=== PATIENT | female | born 1960 | race African-American/Black ===

== ENCOUNTER 2025-06-14 09:40 | Inpatient (IN) | payer MEDICARE, MEDICAID ==
[~2025-06-14] VITALS: Ht 160 cm; Wt 89.4 kg
[~2025-06-14 09:40] MED LIST: AMLO5TAB6; VERA240T94
[2025-06-14 09:53] VITALS: O2SAT 99
[2025-06-14 10:24] LABS: BASOPHILS % 0.4 % (0.0-2.0); EOSINOPHILS % 0.1 % (0.0-5.0); HEMATOCRIT. 24.2 % (36.0-48.0); HEMOGLOBIN. 8.2 g/dL (12.0-16.0); LYMPHOCYTES % 15.1 % (20.0-50.0); MEAN PLATELET VOLUME 10.2 fl (7.4-10.4); MONOCYTES % 6.1 % (2.0-8.0); NEUTROPHILS % 78.3 % (40.0-76.0); PLATELET 143 x1000/uL (130-400); RED BLOOD CELL COUNT 3.12 mill/uL (4.2-5.4); RED CELL DISTRIBUTION WIDTH 14.2 % (11.6-14.6)
[2025-06-14 10:59] LABS: CREATININE 0.9 mg/dL (0.6-1.0); TROPONIN I HIGH SENSITIVITY 12 ng/L (3.0-34); UREA NITROGEN BLOOD 18 mg/dL (9-23)
[2025-06-14 11:00] LABS: ASPARTATE AMINOTRANSFERASE 24 IU/L (<34)
[2025-06-14 11:01] LABS: BILIRUBIN DIRECT 0.2 mg/dL (<=3.0); BILIRUBIN TOTAL 0.8 mg/dL (0.1-1.0); PROTEIN TOTAL 6.5 g/dL (6.0-8.3)
[2025-06-14 11:59] LABS: INR 1.1
[2025-06-14 16:00] VITALS: BP 128/69; PULSE 88; RESP 16; TEMP 36.4; O2SAT 100
[2025-06-14 17:24] VITALS: BP 123/95; PULSE 84; RESP 16; TEMP 36.7; O2SAT 98
[2025-06-14 17:25] VITALS: BP 123/55; PULSE 80; RESP 16; TEMP 36.696
[2025-06-14] MEDS ORDERED: CLONIDINE 0.1MG TABLET PO PRN (17:45)
[2025-06-14] MEDS: DIATR MEGLU/DIATRIZOATE SOLN 30ML PO SCH (17:45)
[2025-06-14] MEDS ORDERED: MAGNESIUM/ALUMINUM HYDROXIDE/SIMETHICONE 30ML UDC PO PRN (17:45)
[2025-06-14] MEDS ORDERED: ONDANSETRON HCL 4MG/2ML INJ IV PRN (17:45)
[2025-06-14] MEDS ORDERED: ZOLPIDEM TARTRATE 5MG TABLET PO PRN (17:45)
[2025-06-14] MEDS ORDERED: ACETAMINOPHEN 325MG TABLET PO PRN ×2 (17:45)
[2025-06-14] MEDS ORDERED: DIPHENHYDRAMINE 50MG/ML VIAL IV PRN (17:45)
[2025-06-14] MEDS: MAGNESIUM 2 G PREMIX 50 ML IV SCH (17:53)
[2025-06-14] MEDS: MAGNESIUM 2 G PREMIX 50 ML IV ONE (17:53)
[2025-06-14] MEDS: PANTOPRAZOLE SODIUM 40 MG/VIAL IV SCH (18:16)
[2025-06-14] MEDS: SODIUM CHLORIDE 0.9% 1,000 ML IV SCH (18:17)
[2025-06-14] MEDS: INFLUENZA VACCINE 05/PF 0.5 ML SYRINGE IM ONE (19:39)
[2025-06-14 20:00] VITALS: BP 121/72; PULSE 99; RESP 17; TEMP 35.6; O2SAT 100
[2025-06-14] MEDS ORDERED: IOHEXOL-300 100 ML BOTTLE ONE (23:29)
[2025-06-15] VITALS (9 sets, daily range): BP systolic 94–129; BP diastolic 47–67; PULSE 81–99; RESP 15–18; TEMP 35.9–37.39188; O2SAT 98–100
[2025-06-15 06:27] LABS: CREATININE 0.8 mg/dL (0.6-1.0)
[2025-06-15 06:30] LABS: UREA NITROGEN BLOOD 16 mg/dL (9-23)
[2025-06-15 06:32] LABS: PHOSPHORUS 3.4 mg/dL (2.5-4.9)
[2025-06-15 06:36] LABS: FOLIC ACID (FOLATE) SERUM > 20.00 ng/mL (>5.38); VITAMIN B12 SERUM 594 pg/mL (211-911)
[2025-06-15 06:41] LABS: BASOPHILS % 0.4 % (0.0-2.0); EOSINOPHILS % 0.3 % (0.0-5.0); LYMPHOCYTES % 19.9 % (20.0-50.0); MEAN PLATELET VOLUME 10.7 fl (7.4-10.4); MONOCYTES % 7.2 % (2.0-8.0); NEUTROPHILS % 72.2 % (40.0-76.0); PLATELET 119 x1000/uL (130-400); RED BLOOD CELL COUNT 2.49 mill/uL (4.2-5.4); RED CELL DISTRIBUTION WIDTH 14.2 % (11.6-14.6)
[2025-06-15 07:00] LABS: HEMOGLOBIN. 6.5 g/dL (12.0-16.0)
[2025-06-15 07:01] LABS: HEMATOCRIT. 19.4 % (36.0-48.0)
[2025-06-15] MEDS ORDERED: CYANOCOBALAMIN 1000MCG/ML VIAL IM NR (20:58)
[2025-06-16] VITALS (11 sets, daily range): BP systolic 104–131; BP diastolic 50–66; PULSE 77–91; RESP 16–18; TEMP 36.4–37.33632; O2SAT 97–100
[2025-06-16] MEDS: CYANOCOBALAMIN 1000MCG/ML VIAL IM NR (05:27)
[2025-06-16 08:20] LABS: PLATELET 127 x1000/uL (130-400); RED BLOOD CELL COUNT 2.79 mill/uL (4.2-5.4); RED CELL DISTRIBUTION WIDTH 14.6 % (11.6-14.6)
[2025-06-16 08:34] LABS: UREA NITROGEN BLOOD 10 mg/dL (9-23)
[2025-06-16 08:52] LABS: CREATININE 0.8 mg/dL (0.6-1.0)
[2025-06-17] VITALS: BP 107/49; PULSE 77; RESP 18; TEMP 36.4; O2SAT 100
[2025-06-17 00:27] VITALS: BP 107/49; PULSE 77; RESP 18; TEMP 37.16964
[2025-06-17 01:23] VITALS: BP 107/50; PULSE 77; RESP 17; TEMP 37.16964
[2025-06-17 04:00] VITALS: BP 104/59; PULSE 77; RESP 17; TEMP 36.1; O2SAT 100
[2025-06-17 07:42] LABS: PLATELET 126 x1000/uL (130-400); RED BLOOD CELL COUNT 3.22 mill/uL (4.2-5.4); RED CELL DISTRIBUTION WIDTH 15.1 % (11.6-14.6)
[2025-06-17 08:00] VITALS: BP 151/85; PULSE 85; RESP 15; TEMP 36.3; O2SAT 100
[2025-06-17 12:07] VITALS: BP 100/72; PULSE 80; RESP 17; TEMP 97.3
== END 2025-06-17 13:02 | disposition home or self-care (01) | DRG 379 ==
LOC: ER 09:40 → 5WST 11:56 → ENRESERV 13:06 → CANBEDREQ 13:18
PROVIDERS: ADMIT Internal Medicine; ATTEND Internal Medicine
PROC: 30233N1 Transfusion of Nonautologous Red Blood Cells into Peripheral Vein, Percutaneous Approach (ICD-10-PCS; principal; 2025-06-15)
DX: K57.91 Diverticulosis of intestine, part unspecified, without perforation or abscess with bleeding (principal); K62.5 Hemorrhage of anus and rectum; D50.9 Iron deficiency anemia, unspecified; E66.01 Morbid (severe) obesity due to excess calories; I10 Essential (primary) hypertension; E78.5 Hyperlipidemia, unspecified; K64.9 Unspecified hemorrhoids; Z68.34 Body mass index [BMI] 34.0-34.9, adult
CPT/HCPCS: 36415; 74177; 80048; 80076; 82378; 82607; 82728; 82746; 83540; 83550; 83735; 84100; 84484; 85025; 85027; 85044; 86850; 86870; 86900; 86920; 93005; 99285; J2470; J3420; J3475; J7030; P9016; Q9963; Q9967